=== PATIENT | male | born 1995 | race African-American/Black ===

== ENCOUNTER 2017-05-18 13:51 | Emergency (ER) | payer SELFPAY ==
[~2017-05-18] VITALS: Ht 185.4 cm; Wt 78.9 kg
[2017-05-18 16:14] VITALS: BP 109/61
[2017-05-18] MEDS ORDERED: cefTRIAXone SODIUM 250 MG VL IM ONE (16:30)
[2017-05-18] MEDS ORDERED: AZITHROMYCIN 250 MG TAB PO ONE (16:30)
== END 2017-05-18 17:03 | disposition home or self-care (01) ==
LOC: ER 13:51
DX: A64 Unspecified sexually transmitted disease (principal)
CPT/HCPCS: 96372; 99283; J0696